=== PATIENT | male | born 1960 | race Hispanic/Latino ===

== ENCOUNTER 2020-02-03 13:29 | Emergency (ER) | payer MEDICARE, OTHER | END 2020-02-03 16:03 | disposition home or self-care (01) | LOC: EDH 13:29 | DX: R05 Cough (principal); Z20.828 Contact with and (suspected) exposure to other viral communicable diseases; E11.9 Type 2 diabetes mellitus without complications; I10 Essential (primary) hypertension; E78.00 Pure hypercholesterolemia, unspecified; Z88.3 Allergy status to other anti-infective agents | CPT/HCPCS: 71045; 87426; 87804 ×2; 99284; U0003 ==